=== PATIENT | female | born 1980 | race Caucasian/White ===

== ENCOUNTER → 2018-07-31 | Outpatient (REF) ==
[~2018-07-31] MED LIST: ALBUTEROL0.83 MG/ML INH; AMOXICILLIN 50500 MG PO; ASPIRIN 81M81 MG/TA2 PO; BACTRIM DS 8001 TAB PO; BCP TD; FERROUS SULFATE1 GRA; FLEXERIL10 MG PO; IRON325 MG PO; MEDROL 4MG DOSPA4 MG PO; MOTRIN800 MG PO; MVI; NORCO 325 MG-51 TAB PO; NORCO 325 MG-7.1 TAB PO; PERCOCET 325 MG1 TA2 PO; PHENERGAN 25 TA25 MG PO; PRENATAL VITAMI1 TA5 PO; PRENATAL1 TA1 PO; PRILOSEC10 MG PO; PROMETHAZINE12.5 M5 PO; PROTONIX40 MG PO; VITAMIN B COMPL1 SGL PO; ZOFRAN ODT4 MG PO; ZOLOFT50 MG PO
[2018-07-31 19:44] LABS: THYROID STIMULATING HORMONE 2.55 uIU/mL (0.465-4.680)
== END ==
LOC: ZLAB.WCH 18:55
PROVIDERS: Internal Medicine
DX: Z01.89 Encounter for other specified special examinations (principal)

== ENCOUNTER → 2023-02-19 | Outpatient (CLI) | payer BC | LOC: COL.RAD 09:49 | DX: K76.0 Fatty (change of) liver, not elsewhere classified (principal); R10.12 Left upper quadrant pain ==

== ENCOUNTER → 2023-08-07 | Outpatient (CLI) | payer BC ==
[~2023-08-07] MED LIST changes: +Barium Sulfate 2% Oral Susp 450 ML X 2 BOTTLES PO SCH; +Iohexol 300 - 100 ML VIAL IV ONE; +NS 100 ML IV SCH
== END ==
LOC: COL.RAD 07:18
DX: R10.12 Left upper quadrant pain (principal); K76.0 Fatty (change of) liver, not elsewhere classified
CPT/HCPCS: Q9967